=== PATIENT | female | born 1980 | race Caucasian/White ===

== ENCOUNTER 2016-09-10 17:43 | Emergency (ER) | payer MEDICAID, OTHER ==
[~2016-09-10] VITALS: Ht 160 cm; Wt 69.0 kg
[2016-09-10 18:04] VITALS: Ht 160 cm; Wt 69.0 kg
[2016-09-10] MEDS ORDERED: SOD CHLORIDE 0.9% 1,000 ML IV STA (20:29)
[2016-09-10] MEDS ORDERED: ONDANSETRON 4 MG INJ IV STA ×2 (20:29→22:32)
[2016-09-10] MEDS ORDERED: morphine 4 MG/ML VIAL IV STA (20:29)
[2016-09-10 21:59] LABS: BASOPHILS % 0.3 % (0.0-2.0); CONDITION 1; EOSINOPHILS # 0.1 10^3/ul (0.0-0.5); EOSINOPHILS % 0.7 % (0.0-7.0); LYMPHOCYTES # 1.9 10^3/ul (0.8-2.9); LYMPHOCYTES % 16.3 % (15.0-51.0); MEAN CORPUSCULAR HGB CONC 34.1 g/dl (32.0-37.0); MEAN CORPUSCULAR VOLUME 90.9 fl (82.0-101.0); MEAN PLATELET VOLUME 10.1 fl (7.4-10.4); MONOCYTE # 0.7 10^3/ul (0.3-0.9); MONOCYTES % 6.3 % (0.0-11.0); NEUTROPHIL # 8.8 10^3/ul (1.6-7.5); NEUTROPHILS % 76.4 % (39.0-77.0); PLATELET COUNT 267 10^3/UL (140-440); RED BLOOD COUNT 4.18 10^6/ul (4.20-5.40); RED CELL DISTRIBUTION WIDTH 13.2 % (11.5-14.5); UNCORRECTED WBC 11.5 10^3/ul (4.8-10.8); WHITE BLOOD COUNT 11.5 10^3/ul (4.8-10.8)
[2016-09-10 22:01] LABS: ALBUMIN 4.4 g/dl (3.3-4.9)
--- NOTE | 2016-09-10 22:01 | RADRPT ---
PROCEDURE: CT Abdomen and Pelvis without contrast CLINICAL INDICATION: Abdominal pain TECHNIQUE: Transaxial images were obtained through the abdomen and pelvis on a multi-slice scanner without the intravenous contrast administration. No oral contrast had previously been given. Sagit linda and coronal re-formations were subsequently reconstructed. One or more of the following dose reduction techniques were used: - Automated exposure control. - Adjustment of the mA and/or kV according to patient size. - Use of iterative reconstruction technique. Radiation dose: CTDIvol = 11.49 mGy; DLP = 577.90 mGy-cm. COMPARISON: No prior studies are available for comparison. FINDINGS: Lung bases: Minimal discoid atelectasis is seen at the lung bases. Liver: The liver is mildly enlarged but no focal lesion is identified. Gallbladder: The wall is not thickened. No radiopaque stones are identified. Bile ducts: The intra and extrahepatic bile ducts are normal in caliber. Pancreas: Appears normal with no mass or inflammation evident. Spleen: Normal in size with no focal lesion. Adrenals: Normal with no mass identified. Kidneys, ureters and bladder: The kidneys are normal in size and there is no mass, pathological calc ification, or hydronephrosis evident. There is no perinephric stranding. The ureters are normal in c aliber and no ureteroliths are identified. The bladder appears unremarkable. Reproductive organs: Unremarkable. Stomach and bowel: The stomach appears unremarkable. There is extensive inflammatory changes seen e xtend about the ascending colon associated with bowel wall thickening most evident posteriorly over a length of 5 cm. There is no evidence of bowel obstruction. Appendix: A normal-appearing vermiform appendix is evident. Peritoneum: No free intraperitoneal fluid or air is identified. Aorta: Normal in caliber with no aneurysmal dilatation. IVC: Unremarkable. Lymph nodes: Several mesenteric nodes are seen within the right lower quadrant of the abdomen up to 6 mm in short diameter. Osseous structures: Cystic changes are seen within the left ischium pleural possibly representing fi brous dysplasia. IMPRESSION: 1. There is bowel wall thickening involving the ascending colon over a length of approximately 5 cm with extensive stranding extending into the intraperitoneal fat. There is no evidence of bowel obs truction, diverticuli are not identified, and there is a normal-appearing vermiform appendix. This raises the suspicion of a colitis involving the ascending colon. A few mesenteric nodes up to 6 mm i n diameter are noted. 2. There is no evidence of urinary outflow obstruction or ureterolithiasis. 3. Mild hepatomegaly with no focal lesion. 4. There is no free intraperitoneal fluid or air. Findings of colitis involving the ascending colon were telephoned by Enrike Perez MD to FRANCIS[facility] JAVIER Lopez on 09/10/2016 at 2000 hours.. Physician Lissette Date Time Electronically viewed and signed by Physician Lissette on 09/10/2016 22:01 /
[2016-09-10 22:02] LABS: POTASSIUM 3.9 mmol/L (3.5-5.1)
[2016-09-10 22:04] LABS: BILIRUBIN,INDIRECT 1.5 mg/dl (0-1.1); BILIRUBIN,TOTAL 1.5 mg/dl (0.2-1.3); CREATININE 0.73 mg/dl (0.44-1.00)
[2016-09-10 22:05] LABS: ALBUMIN/GLOBULIN RATIO 1.22; CALCIUM 9.1 mg/dl (8.4-10.2)
[2016-09-10 22:30] LABS: URINE BLOOD (Dip) POC Trace-lysed (NEGATIVE)
[2016-09-10] MEDS ORDERED: METR500T PO (22:36)
[2016-09-10] MEDS ORDERED: HYDR-902 PO (22:36)
[2016-09-10] MEDS ORDERED: ONDA4TAB14 PO (22:36)
[2016-09-10] MEDS ORDERED: CIPR500T4 PO (22:36)
--- NOTE | 2016-09-10 22:41 | ERD ---
ER Documentation Chief Complaint Date/Time DATE: 09/10/16 TIME: 22:39 Chief Complaint EPIGASTRIC PAIN,NAUSEA,VOMITING HPI Patient is a 35-year-old female who is complaining of severe abdominal pain for the past 2 days. Pain is mostly in the epigastric region but is all over the stomach. Pain is intermittent and she states she feels like the inside of her stomach is twisting. Also admits to nausea and vomiting at home. Denies any dysuria hematuria or increased urinary frequency. Denies possibility of being . No change with food. She states she gets attacks of pain about every 15 minutes. Denies any hemoptysis, dark stools, bloody stools. ROS All systems reviewed and are negative except as per history of present illness. Medications Home Meds Active Scripts Ondansetron (Ondansetron Odt) 4 Mg Tab.rapdis, 4 MG PO Q6H Y for NAUSEA AND/OR VOMITING, #15 TAB Prov:LEENA GIORDANO PA-C 09/10/16 Hydrocodone/Acetaminophen ([place] 10-325 Tablet) 1 Each Tablet, 1 TAB PO Q6H Y for PAIN, #20 TAB Prov:LEENA GIORDANO PA-C 09/10/16 Metronidazole* (Flagyl*) 500 Mg Tablet, 500 MG PO TID for 7 Days, TAB Prov:LEENA GIORDANO PA-C 09/10/16 Ciprofloxacin Hcl* (Ciprofloxacin Hcl*) 500 Mg Tablet, 500 MG PO BID for 7 Days , TAB Prov:LEENA GIORDANO PA-C 09/10/16 PMhx/Soc Medical and Surgical Hx: pt denies Medical Hx, pt denies Surgical Hx History of Surgery: No Anesthesia Reaction: No Hx Neurological Disorder: No Hx Respiratory Disorders: No Hx Cardiac Disorders: No Hx Psychiatric Problems: No Hx Miscellaneous Medical Probl: No Hx Alcohol Use: No Hx Substance Use: No Hx Tobacco Use: No Smoking Status: Never smoker FmHx Family History: No diabetes Physical Exam Vitals Vital Signs Date Time Temp Pulse Resp B/P Pulse Ox O2 Delivery O2 Flow Rate FiO2 09/10/16 18:04 99.6 89 20 136/71 99 Physical Exam General: well developed, well nourished, alert, nontoxic, no distress Head: normocephalic, atraumatic Neck: Supple, nontender, no lymphadenopathy, no midline tenderness Respiratory: Clear to auscaultation bilaterally, speaks in full sentences, no use of accesory muscles or labored breathing, no rales, ronchi, or wheezing Cardiovascular: RRR, No murmurs GI: soft, , non distended, diffuse tenderness throughout the entire abdomen, no rebound or guarding Back: no midline tenderness, no step offs or bony abnormalities, sensation to light touch in tact Extremities: moving all extremities normally, normal gait, no edema Result Diagram: 09/10/16203709/10/162037 Results 24 hrs Laboratory Tests Test 09/10/16 20:38 09/10/16 22:32 Alanine Aminotransferase (ALT/SGPT) 136IU/L Albumin 4.4g/dl Albumin/Globulin Ratio 1.22 Alkaline Phosphatase 147IU/L Anion Gap 20 Aspartate Amino Transf (AST/SGOT) 115IU/L Basophils # 0.010^3/ul Basophils % 0.3% Blood Urea Nitrogen 14mg/dl Calcium Level 9.1mg/dl Carbon Dioxide Level 23mmol/L Chloride Level 105mmol/L Creatinine 0.73mg/dl Direct Bilirubin 0.00mg/dl Eosinophils # 0.110^3/ul Eosinophils % 0.7% Globulin 3.60g/dl Glucose Level 92mg/dl Hematocrit 38.0% Hemoglobin 13.0g/dl Indirect Bilirubin 1.5mg/dl Lipase 76U/L Lymphocytes # 1.910^3/ul Lymphocytes % 16.3% Mean Corpuscular Hemoglobin 31.0pg Mean Corpuscular Hemoglobin Concent 34.1g/dl Mean Corpuscular Volume 90.9fl Mean Platelet Volume 10.1fl Monocytes # 0.710^3/ul Monocytes % 6.3% Neutrophils # 8.810^3/ul Neutrophils % 76.4% Nucleated Red Blood Cells # 0.010^3/ul Nucleated Red Blood Cells % 0.0/100WBC Platelet Count 75732^3/UL Potassium Level 3.9mmol/L Red Blood Count 4.1810^6/ul Red Cell Distribution Width 13.2% Sodium Level 144mmol/L Total Bilirubin 1.5mg/dl Total Protein 8.0g/dl White Blood Count 11.510^3/ul Bedside Urine Blood Trace-lysed Bedside Urine Glucose (UA) Negative Bedside Urine Ketones (LAB) Negative Bedside Urine Leukocyte Esterase (L Trace Bedside Urine Nitrite (LAB) Negative Bedside Urine Protein (LAB) Negative Bedside Urine pH (LAB) 6.0 Current Medications Medications (Trade) Dose Ordered Sig/Tia Route PRN Reason Start Time Stop Time Status Last Admin Dose Admin Sodium Chloride (NS) 1,000 ml @ 1,000 mls/hr Q1H STAT IV 09/10/16 20:29 09/10/16 21:28 DC 09/10/16 20:39 Morphine Sulfate (morphine) 4 mg ONCE STAT IV 09/10/16 20:29 09/10/16 20:31 DC 09/10/16 20:39 Ondansetron HCl (Zofran Inj) 4 mg ONCE STAT IV 09/10/16 20:29 09/10/16 20:31 DC 09/10/16 20:38 Morphine Sulfate (morphine) 2 mg ONCE ONCE IV 09/10/16 23:00 09/10/16 23:01 Ondansetron HCl (Zofran Inj) 4 mg ONCE STAT IV 09/10/16 22:32 09/10/16 22:33 DC Procedures/MDM Patient presents with abdominal pain. Vital signs are stable. She has diffuse tenderness throughout the abdomen. Labs show mildly elevated white blood cell count and mildly elevated liver enzymes otherwise unremarkable. Ultrasound showed findings of colitis. I reviewed the findings with my supervising physician who recommended outpatient management with Cipro and yl and I also gave her [place] for pain. She was given fluids and morphine here in the emergency room with improvement of her symptoms. Recommended this patient follow up with her primary care doctor within 48 hours or return to the emergency room for any worsening of symptoms. However this time I do believe there is suitable for outpatient management. I answered all their questions and they agreed with the plan and were discharged home. Departure Diagnosis: Primary Impression: Colitis Condition: Stable Patient Instructions: Abdominal Pain Additional Instructions: Llame al doctor MAANA y janny may UYEN PARA DENTRO DE 1-2 BIRCH.Dgale a la secretaria que nosotros le instruimos hacer esta uyen.Avise o llame si ahn condicin se empeora antes de la uyen. Regresa aqui si peor o no mejor. LEENA GIORDANO PA-C Sep 10, 2016 22:41
[2016-09-10] MEDS ORDERED: morphine 2 MG INJ IV ONE (23:00)
[2016-09-10 23:08] LABS: ADD UMIC YES; URINE BILIRUBIN (Dip) NEGATIVE (NEGATIVE); URINE BLOOD (Dip) TRACE (NEGATIVE); URINE COLOR LT. YELLOW (YELLOW); URINE GLUCOSE (Dip) NEGATIVE (NEGATIVE); URINE KETONES (Dip) NEGATIVE (NEGATIVE); URINE LEUKOCYTE ESTERASE (Dip) TRACE (NEGATIVE); URINE NITRITE (Dip) NEGATIVE (NEGATIVE); URINE TOTAL PROTEIN (Dip) NEGATIVE (NEGATIVE); URINE UROBILINOGEN (Dip) 1.0 E.U./dL (0.1-1.0)
[2016-09-10] MEDS ORDERED: HYDROmorphONE 1 MG/ML SYG IV STA (23:15)
[2016-09-10 23:36] LABS: SQUAMOUS EPITHELIAL CELL,UR MODERATE
[2016-09-10 23:37] LABS: BACTERIA,URINE FEW
[2016-09-11 00:20] VITALS: BP 98/53; PULSE 71; RESP 18; TEMP 98.4
== END 2016-09-11 00:20 | disposition home or self-care (01) ==
LOC: FTE 17:43
DX: K52.9 Noninfective gastroenteritis and colitis, unspecified (principal); R11.2 Nausea with vomiting, unspecified
CPT/HCPCS: 36415; 74176; 80053; 81001; 83690; 85025; 96361; 96374; 96375; 96376; J1170; J2270; J2405; J7030; Z7502; 81003

== ENCOUNTER 2018-08-29 19:19 | Emergency (ER) | payer MEDICAID ==
[~2018-08-29] VITALS: Ht 152.4 cm; Wt 70.8 kg
[~2018-08-29 19:19] MED LIST: CIPR500T4 PO; HYDR-3980 PO; METR500T PO; ONDA4TAB14 PO
[2018-08-29 19:24] VITALS: Ht 152.4 cm; Wt 70.8 kg
[2018-08-29] MEDS ORDERED: HYDROCODONE/APAP (5/325) TAB PO ONE (21:00)
[2018-08-29] MEDS ORDERED: IBUP800T48 PO (21:35)
--- NOTE | 2018-08-29 21:39 | ERD ---
ER Documentation Chief Complaint Chief Complaint R foot pain today only s/p mis-step, walk w/ limp CARLOS Is a 37-year-old female who presents with right foot pain after she missed a step and bent her foot. She now has pain in the right foot and she is unable to bear weight. Pain is worse around the big toe. No head injury or KO. No numbness or tingling. Has not taken any medication for the pain. ROS All systems reviewed and are negative except as per history of present illness. Medications Home Meds Active Scripts Ibuprofen* (Motrin*) 800 Mg Tab, 800 MG PO Q6, #30 TAB Prov:LEENA GIORDANO PA-C 08/29/18 Ondansetron (Ondansetron Odt) 4 Mg Tab.rapdis, 4 MG PO Q6H PRN for NAUSEA AND/OR VOMITING, #15 TAB Prov:LEENA GIORDANO PA-C 09/10/16 Hydrocodone/Acetaminophen ([place] 10-325 Tablet) 1 Each Tablet, 1 TAB PO Q6H PRN for PAIN, #20 TAB Prov:LEENA GIORDANO PA-C 09/10/16 Metronidazole* (Flagyl*) 500 Mg Tablet, 500 MG PO TID for 7 Days, TAB Prov:LEENA GIORDANO PA-C 09/10/16 Ciprofloxacin Hcl* (Ciprofloxacin Hcl*) 500 Mg Tablet, 500 MG PO BID for 7 Days, TAB Prov:LEENA GIORDANO PA-C 09/10/16 PMhx/Soc Medical and Surgical Hx: pt denies Medical Hx, pt denies Surgical Hx History of Surgery: No Anesthesia Reaction: No Hx Neurological Disorder: No Hx Respiratory Disorders: No Hx Cardiac Disorders: No Hx Psychiatric Problems: No Hx Miscellaneous Medical Probl: No Hx Alcohol Use: No Hx Substance Use: No Hx Tobacco Use: No Smoking Status: Never smoker FmHx Family History: No diabetes Physical Exam Vitals Vital Signs Date Temp Pulse Resp B/P (MAP) Pulse Ox O2 O2 Flow FiO2 Time Delivery Rate 08/29/18 98.3 70 16 126/61 99 19:24 (82) Physical Exam Const: No acute distress Head: Atraumatic Eyes: Normal Conjunctiva ENT: Normal External Ears, Nose and Mouth. Neck: Full range of motion. No meningismus. Resp: Clear to auscultation bilaterally Cardio: Regular rate and rhythm, no murmurs Lower Extremity - bilateral: Skin: Falling to the dorsal surface of the distal foot Compartments: Soft Motor: Full active range of motion hip/knee/ankle/foot Sensation: Intact to light touch FDWS/MF/LF/P surfaces. Bones: Mild tenderness to palpation over dorsal surface of foot particularly over the base of the first and second metatarsal Joints: No effusion or laxity Pulses/Perfusion: 2+ DP, Capillary refill < 2 seconds Results 24 hrs Laboratory Tests Test 08/29/18 21:06 POC Beta HCG, Qualitative NEGATIVE Current Medications Medications Dose Sig/Tia Start Time Status Last (Trade) Ordered Route PRN Stop Time Admin Dose Reason Admin 1 tab ONCE ONCE 08/29/18 DC 08/29/18 Acetaminophen PO 21:00 21:04 / 08/29/18 21:01 Hydrocodone Bitart ([place] (5/325)) Procedures/MDM This is a 37-year-old who has foot pain after trauma. She is neurovascular intact. She was given [place] for pain. X-rays are negative. She was given copy of the results she can follow-up with primary care. She was given crutches and Jose wrap. Prescription for Motrin given. Patient counseled regarding my diagnostic impression and care plan. Prior to discharge all questions answered. Pt agrees with treatment plan and understands strict return precautions. Pt is instructed to follow up with primary care provider within 24-48 hours. Precautionary instructions provided including instructions to return to the ER if not improving or for any worsening or changing symptoms or concerns. Departure Diagnosis: Primary Impression: Foot pain Condition: Stable Patient Instructions: Sprain Foot Additional Instructions: Llame al doctor DELVIN y janny may UYEN PARA DENTRO DE 1-2 BIRCH.Dgale a la secretaria que nosotros le instruimos hacer esta uyen.Avise o llame si ahn condicin se empeora antes de la uyen. Regresa aqui si peor o no mejor. LEENA GIORDANO PA-C Aug 29, 2018 21:39
[2018-08-29 21:53] VITALS: BP 114/60; PULSE 64; RESP 18
== END 2018-08-29 21:55 | disposition home or self-care (01) ==
LOC: FTE 19:19
DX: M79.671 Pain in right foot (principal)
CPT/HCPCS: 73630; 81025; Z7502; Z7610